=== PATIENT | male | born 1985 | race Native Hawaiian/Other Pacific Islander ===

== ENCOUNTER 2016-09-13 23:31 | Emergency (ER) | payer OTHER ==
[~2016-09-13] VITALS: Ht 172.7 cm; Wt 90.7 kg
[2016-09-14 01:30] VITALS: BP 152/95; TEMP 97.6
[2016-09-14] MEDS ORDERED: CLON0.1T16 PO (11:39)
== END 2016-09-14 02:00 | disposition home or self-care (01) ==
LOC: ED 23:31
PROC: 0W3Q7ZZ Control Bleeding in Respiratory Tract, Via Natural or Artificial Opening (ICD-10-PCS; principal; 2016-09-13)
DX: R04.0 Epistaxis (principal)
CPT/HCPCS: 99282

== ENCOUNTER 2016-09-14 09:56 | Emergency (ER) | payer OTHER ==
[~2016-09-14] VITALS: Ht 172.7 cm; Wt 90.7 kg
[2016-09-14 10:00] VITALS: BP 157/97; TEMP 98
[2016-09-14] MEDS ORDERED: CLON0.1T16 PO (11:39)
== END 2016-09-14 10:30 | disposition left against medical advice (07) ==
LOC: ED 09:56
DX: R04.0 Epistaxis (principal)
CPT/HCPCS: 99281; J7040

== ENCOUNTER 2022-11-15 13:05 | Emergency (ER) | payer OTHER ==
[~2022-11-15] VITALS: Ht 170.2 cm; Wt 81.6 kg
[~2022-11-15 13:05] MED LIST: CLON0.1T16 PO
[2022-11-15 13:10] VITALS: TEMP 98.3
[2022-11-15 13:31] LABS: PLATELET COUNT 290 K/uL (142-355)
[2022-11-15 15:30] VITALS: BP 155/89
== END 2022-11-15 15:30 | disposition home or self-care (01) ==
LOC: ED 13:05
PROVIDERS: Family Medicine
DX: E86.0 Dehydration (principal); R42 Dizziness and giddiness
CPT/HCPCS: 36415; 80053; 82550; 84484; 85027; 93005; 96360; 96366; 99284